=== PATIENT | female | born 1985 | race Hispanic/Latino ===

== ENCOUNTER 2019-12-08 13:21 | Outpatient (CLI) | payer MEDICAID, OTHER ==
--- NOTE | 2019-12-08 14:57 | ULT ---
EXAM: OB ultrasound COMPARISON: None HISTORY: female patient. Evaluate anatomy and cervix. TECHNIQUE: Multiplanar grayscale and color Doppler transabdominal sonographic images are obtained. FINDINGS: There is a single intrauterine gestation in breech presentation. Cardiac Doppler demonstrat es heart tones with a heart rate of 155 beats per minute. The placenta is located posteriorly without evidence of placenta previa. There is a normal amount of amniotic fluid with an a mniotic fluid index of 13.9 centimeters. The cervix is not well evaluated on this exam. biometry measurements: BPD 5.02 cm -- 21 weeks 2 days HC 18.63 cm -- 21 weeks AC 16.51 cm -- 21 weeks 4 days FL 3.36 cm -- 20 weeks 4 days The estimated gestational age by ultrasound is 21 weeks 1 day with an JEREMY on04/18/2020. Gestational a ge by the last menstrual period is 23 weeks 5 days. The estimated weight by ultrasound is 398 g (14 ounces). This represents 2 percentile for weight. A 4 chambered heart is visualized. The cerebellum, visualized portions of the spine, kidneys, u rinary bladder, and cord insertion demonstrate a normal sonographic appearance. A three-vessel cord is not able to be delineated on provided images. No definite anomalies are seen. IMPRESSION: 1. Single intrauterine gestation in breech presentation with heart tones documented. Estimated gestational age by ultrasound is 21 weeks 1 day which does represent a discrepancy in gestational age by last menstrual period of 23 weeks 5 days. Estimated date of delivery is 04/18/2020. 2. Estimated weight is 398 g (14 ounces). 3. Amniotic fluid index is 13.9 centimeters.
== END 2019-12-08 13:22 | disposition home or self-care (01) ==
LOC: BICULT 13:21
PROVIDERS: ATTEND Family Medicine
DX: O09.522 Supervision of elderly multigravida, second trimester (principal); Z3A.21 21 weeks gestation of pregnancy
CPT/HCPCS: 76805

== ENCOUNTER 2020-02-18 09:38 | Outpatient (CLI) | payer MEDICAID ==
--- NOTE | 2020-02-18 10:48 | ULT ---
OB ULTRASOUND WITH UMBILICAL ARTERY DOPPLER: Date: 02/18/2020 HISTORY: Mismatched dates. FINDINGS: A single, live intrauterine gestation is seen with measurements corresponding to an estimated gestati onal age of 31 weeks and 4 days, and JEREMY at 04/17/2020. The estimated weight measures 1743 gm, or 3 lbs and 13 oz (2% by Hadlock criteria). Biometry: BPD: 7.83 cm, 31 weeks/3 days HC: 29.30 cm, 32 weeks/3 days AC: 27.69 cm, 31 weeks/6 days FL: 5.78 cm, 30 weeks/2 days heart rate measures 140 beats/minute. ONELIA measures 20.3 cm. Placenta is posterior fundal without evidence of placenta previa. Cervical length measures 4.9 cm. The peak systolic velocity in the umbilical artery measures 84 cm/second with an end-diastolic veloci ty of 34 cm/second, RI of 0.595, and PI of 0.949. IMPRESSION: Single, live intrauterine of 31 weeks and 4 days estimated gestational age, and JEREMY at 02/2020. POS: AH
== END 2020-02-18 09:39 | disposition home or self-care (01) ==
LOC: BICULT 09:38
PROVIDERS: ATTEND Family Medicine
DX: O24.113 Pre-existing type 2 diabetes mellitus, in pregnancy, third trimester (principal); Z3A.31 31 weeks gestation of pregnancy
CPT/HCPCS: 76805

== ENCOUNTER 2020-03-31 10:36 | Outpatient (CLI) | payer MEDICAID, OTHER ==
[2020-04-01 12:01] LABS: SARS-CoV-2 MS2 Positive; SARS-CoV-2 N Gene Negative; SARS-CoV-2 S Gene Negative; SARS-CoV-2 by NAA Not Detected (NotDetected); SARS-CoV-2 orf1ab Negative
== END 2020-03-31 10:37 | disposition home or self-care (01) ==
LOC: SCSLAB 10:36
PROVIDERS: ATTEND Family Medicine
DX: Z20.828 Contact with and (suspected) exposure to other viral communicable diseases (principal)
CPT/HCPCS: 87635; U0003

== ENCOUNTER 2020-04-04 05:56 | Inpatient (IN) | payer MEDICAID, SELFPAY ==
[2020-04-04] MEDS ORDERED: hydrALAZINE 20 MG/ML VIAL SLOW IVP PRN ×2 (06:05→10:28)
[2020-04-04] MEDS ORDERED: Ondansetron PF 4 MG/2 ML Vial IVP PRN ×3 (06:05→10:28)
[2020-04-04] MEDS ORDERED: Bicitra 30 ML UDCUP PO SCH (06:05)
[2020-04-04] MEDS ORDERED: CEFAZOLIN 2 GM in Premix Bag 1 BAG IVPB SCH (06:05)
[2020-04-04] MEDS ORDERED: Azithromycin 500 MG in Sodium Chloride 0.9% 250 ML 250 ML IVPB SCH (06:05)
[2020-04-04] MEDS ORDERED: Lactated Ringer's 1,000 ML IV SCH (06:05)
[2020-04-04] MEDS ORDERED: Promethazine HCl 25 MG/ML VIAL IM PRN ×2 (06:05→08:25)
[2020-04-04 06:22] VITALS: BMI 28.3
[2020-04-04] MEDS ORDERED: Oxytocin 10 UNITS/ML VIAL ONE (06:52)
[2020-04-04] MEDS ORDERED: PHENYLEPHRINE-NS 100 MCG/ML 10 ML SYRINGE ONE (06:52)
[2020-04-04] MEDS ORDERED: ePHEDrine 50 MG/ML VIAL ONE (06:52)
[2020-04-04 07:17] LABS: Hemoglobin 11.6 g/dL (12.0-16.0); Mean Corpuscular HGB CONC 34.1 g/dL (32.0-36.0); Mean Corpuscular Hemoglobin 29.2 pg (27.0-31.0); Mean Corpuscular Volume 85.6 fL (78.0-98.0); Mean Platelet Volume 9.2 fL (7.4-10.4); Platelet Count 205 thou/uL (130-400); RBC Distribution Width 13.3 % (11.5-14.5); Red Blood Cell (RBC) Count 3.98 mill/uL (4.20-5.40); White Blood Cell (WBC) Count 5.9 thou/uL (4.8-10.8)
[2020-04-04 07:35] LABS: Syphilis Antibody Nonreactive (Nonreactive); Syphilis Antibody Index 0.07 S/CO (<1.00 Non-Reactive)
[2020-04-04 07:36] LABS: HBSAg Index 0.15 S/CO (0-0.99); Hep B Surf Ag Non-Reactive S/CO (NonReactive)
[2020-04-04] MEDS ORDERED: Naloxone HCl 0.4 mg/ml Vial IV PRN (08:25)
[2020-04-04] MEDS ORDERED: L&D-Morphine 4 MG/ML VIAL SLOW IVP PRN (08:25)
[2020-04-04] MEDS ORDERED: Meperidine HCl/PF 25 MG/ML VIAL SLOW IVP PRN (08:25)
[2020-04-04] MEDS ORDERED: Ketorolac Tromethamine 30 MG/ML VIAL IVP PRN (08:25)
[2020-04-04] MEDS ORDERED: HYDROmorphone 2 MG/ML VIAL SLOW IVP PRN (08:25)
[2020-04-04] MEDS ORDERED: Promethazine HCl 25 MG SUPP PR PRN (08:25)
[2020-04-04] MEDS ORDERED: Ondansetron HCl/PF 4 MG/2 ML Vial IVP PRN (08:25)
[2020-04-04] MEDS ORDERED: diphenhydrAMINE 50 MG/ML VIAL IVP PRN (08:25)
[2020-04-04] MEDS ORDERED: Naloxone HCl 0.4 mg/ml Vial IVP PRN ×2 (08:25)
[2020-04-04] MEDS ORDERED: Communication Order-Pharmacy FS SCH (08:30)
[2020-04-04] MEDS ORDERED: Ketorolac Tromethamine 30 MG/ML VIAL IVP SCH (08:30)
[2020-04-04] MEDS ORDERED: NS / Oxytocin 40 units/1000ml 1,000 ML ONE (10:17)
[2020-04-04] MEDS ORDERED: diphenhydrAMINE 25 MG CAP PO PRN (10:28)
[2020-04-04] MEDS ORDERED: NS / Oxytocin 40 units/1000ml 1,000 ML IV SCH (10:28)
[2020-04-04] MEDS ORDERED: Lanolin Ointment 7 GM TUBE TOP PRN (10:28)
[2020-04-04] MEDS ORDERED: Bisacodyl 10 MG SUPP PR PRN (10:28)
[2020-04-04] MEDS ORDERED: Adacel (T-DAP) 0.5 ML SYRINGE IM ONE (10:28)
[2020-04-04] MEDS ORDERED: Docusate Calcium (SURFAK) 240 MG CAP PO SCH (12:00)
[2020-04-04] MEDS ORDERED: Prenatal Vitamin 1 TAB PO SCH (12:00)
[2020-04-04] MEDS ORDERED: Ferrous Sulfate 325 MG TAB PO SCH (12:00)
[2020-04-04] MEDS: Ketorolac Tromethamine 30 MG/ML VIAL IVP SCH ×2 (16:08→22:34)
[2020-04-04] MEDS: Ferrous Sulfate 325 MG TAB PO SCH (17:56)
[2020-04-04] MEDS: metFORMIN 500 MG TAB PO SCH (17:57)
[2020-04-04] MEDS ORDERED: Meperidine HCl/PF 25 MG/ML VIAL IM PRN (20:30)
[2020-04-04] MEDS: Docusate Calcium (SURFAK) 240 MG CAP PO SCH (21:00)
[2020-04-04] MEDS: Insulin Glargine 15 UNITS in Pre-Filled Syringe 1 EACH SC SCH (21:00)
--- NOTE | 2020-04-04 22:48 | OP ---
C/S OPERATIVE REPORT DATE OF PROCEDURE: 04/04/2020 SURGEON: Dmitry Farah MD LOAN DOCUMENTS CLOSER: Belem Damon MD PROCEDURE: Repeat low transverse section. PREOPERATIVE DIAGNOSES: 1. Term intrauterine . 2. History of low-transverse section x3. 3. Diabetes mellitus type 2. 4. Advanced maternal age. POSTOPERATIVE DIAGNOSES: 1. Term intrauterine , delivered. 2. History of section, now x4. 3. Diabetes mellitus type 2. 4. Advanced maternal age. ANESTHESIA: Spinal. INDICATIONS: The patient is a 34-year-old G4, P3-0-0-3 female at 37.6 weeks gestation, who presents for repeat scheduled . PROCEDURE IN DETAIL: After risks, benefits, and alternatives were explained to the patient, she gave informed consent. Preoperative antibiotics included cefazolin 2 g IV. The patient was taken to the operating room and spinal anesthesia was initiated. She was placed in the supine position with a left tilt and prepped and draped in the usual sterile fashion. The Pfannenstiel incision was made with a scalpel and carried down to the level of the fascia, which was sharply nicked. The fascial cut was extended bilaterally with Riley scissors. The inferior and superior edges of the cut fascial edges were elevated with Ratna clamps. The underlying rectus muscles were sharply and bluntly dissected free. The recti were divided digitally and retracted manually. The peritoneum was entered bluntly and retracted manually. Bladder blade was placed. A low transverse score was made with a scalpel and the uterus was entered in the midline with a scalpel. Clear fluid was seen. The hysterotomy was extended manually. The was noted to be vertex and was easily delivered by fundal pressure. Mouth and nares were bulb suctioned. Cord clamped and cut and grossly normal. Male was handed to waiting nurse. Cord blood was obtained. Placenta was spontaneously delivered and found to be intact with 3-vessel cord and discarded. Uterus was externalized and the endometrium was curetted with a dry lap. The bladder blade was replaced and the uterus was closed with a running locking 1-0 Monocryl suture. Approximately 4 [id number] sutures were placed along the closed hysterotomy as well using 0 Vicryl suture. Following this,hemostasis was noted. The abdomen was then irrigated with saline & suctioned free of clots. The anterior surface of the uterus was then covered with 4 sheets of Seprafilm. The uterus was then internalized and the hysterotomy was again noted to be hemostatic. The peritoneum was then closed with a running nonlocking 3-0 Vicryl suture. The medial most portion of the rectus muscles were then reapproximated using a [id number] 3-0 Vicryl suture x2. The fascia was then closed with a running nonlocking 0 PDS suture. The subcutaneous tissue was irrigated and there were no free bleeders. The subcutaneous tissue was then closed using 3 deep interrupted 3-0 vicryl sutures. The skin was then approximated with shereen and a pressure dressing was placed. All counts were correct. The patient tolerated the procedure well, and was taken to the recovery room in stable condition. Of note, the infant did require some respiratory support shortly following delivery and was therefore taken to the nursery for close monitoring of his respiratory status. Quantitative blood loss was 430 mL. COMPLICATIONS: None. SPECIMENS: Cord blood sent to lab for blood type. FINDINGS: 1. Grossly normal male with Apgars of 8 and 8. 2. Grossly normal placenta with 3-vessel cord discarded. DRAIN: Echevarria to gravity draining clear urine. Job ID: [id number] [facility]
[2020-04-05] MEDS: Ketorolac Tromethamine 30 MG/ML VIAL IVP SCH ×2 (04:14→09:24)
[2020-04-05 06:38] LABS: Mean Corpuscular HGB CONC 34.5 g/dL (32.0-36.0); Mean Corpuscular Hemoglobin 29.8 pg (27.0-31.0); Mean Corpuscular Volume 86.3 fL (78.0-98.0); Mean Platelet Volume 8.6 fL (7.4-10.4); Platelet Count 152 thou/uL (130-400); RBC Distribution Width 13.3 % (11.5-14.5); Red Blood Cell (RBC) Count 3.04 mill/uL (4.20-5.40); White Blood Cell (WBC) Count 6.2 thou/uL (4.8-10.8)
[2020-04-05] MEDS ORDERED: Sodium Chloride 0.9% 10 ML ONE (09:19)
[2020-04-05] MEDS: Prenatal Vitamin 1 TAB PO SCH (09:24)
[2020-04-05] MEDS: Ferrous Sulfate 325 MG TAB PO SCH ×2 (09:24→18:29)
[2020-04-05] MEDS: metFORMIN 500 MG TAB PO SCH ×2 (09:25→19:06)
[2020-04-05] MEDS: Docusate Calcium (SURFAK) 240 MG CAP PO SCH ×2 (09:25→21:12)
[2020-04-05] MEDS: Ibuprofen 800 MG TAB PO SCH ×2 (15:27→21:12)
[2020-04-05] MEDS: HYDROcodone/Acetaminophen 5/325 mg Tablet PO PRN (15:28)
[2020-04-05] MEDS: Insulin Glargine 15 UNITS in Pre-Filled Syringe 1 EACH SC SCH (21:13)
[2020-04-06] MEDS: Ibuprofen 800 MG TAB PO SCH ×3 (06:09→21:53)
[2020-04-06] MEDS: Docusate Calcium (SURFAK) 240 MG CAP PO SCH ×2 (08:55→21:53)
[2020-04-06] MEDS: Ferrous Sulfate 325 MG TAB PO SCH ×2 (08:55→17:13)
[2020-04-06] MEDS: Prenatal Vitamin 1 TAB PO SCH (08:55)
[2020-04-06] MEDS: metFORMIN 500 MG TAB PO SCH ×2 (08:55→17:13)
[2020-04-06] MEDS: HYDROcodone/Acetaminophen 5/325 mg Tablet PO PRN ×2 (08:56→20:19)
[2020-04-06] MEDS: Insulin Glargine 15 UNITS in Pre-Filled Syringe 1 EACH SC SCH (21:55)
[2020-04-06 23:50] VITALS: TEMP 98.2
[2020-04-07] MEDS: Ibuprofen 800 MG TAB PO SCH (05:20)
[2020-04-07] MEDS: HYDROcodone/Acetaminophen 5/325 mg Tablet PO PRN (05:21)
[2020-04-07] MEDS: Ferrous Sulfate 325 MG TAB PO SCH (11:10)
[2020-04-07] MEDS: Docusate Calcium (SURFAK) 240 MG CAP PO SCH (11:10)
[2020-04-07] MEDS: Prenatal Vitamin 1 TAB PO SCH (11:10)
[2020-04-07] MEDS: metFORMIN 500 MG TAB PO SCH (11:10)
[2020-04-07 11:51] VITALS: BP 101/61
== END 2020-04-07 12:15 | disposition home or self-care (01) | DRG 786 ==
LOC: L&D 05:56 → 3SW 11:13
PROVIDERS: ADMIT Family Medicine; ATTEND Family Medicine
PROC: 10D00Z1 Extraction of Products of Conception, Low, Open Approach (ICD-10-PCS; principal; 2020-04-04)
PROC: 3E0P05Z Introduction of Adhesion Barrier into Female Reproductive, Open Approach (ICD-10-PCS; 2020-04-04)
DX: O34.211 Maternal care for low transverse scar from previous cesarean delivery (principal); O24.12 Pre-existing type 2 diabetes mellitus, in childbirth; E11.9 Type 2 diabetes mellitus without complications; Z3A.37 37 weeks gestation of pregnancy; Z37.0 Single live birth; Z79.4 Long term (current) use of insulin; Z20.828 Contact with and (suspected) exposure to other viral communicable diseases
CPT/HCPCS: 36415; 36416; 51702; 85027; 86762; 86780; 86850; 86900; 86901; 87340; J0456; J0690; J1200; J1815; J1885; J2270; J2405; J3490; J7050

== ENCOUNTER 2020-09-10 13:03 | Emergency (ER) | payer MEDICAID, OTHER, SELFPAY ==
[2020-09-10] MEDS ORDERED: Ketorolac Tromethamine 30 MG/ML VIAL ONE (14:46)
== END 2020-09-10 15:06 | disposition home or self-care (01) ==
LOC: ERS 13:03
DX: S09.90XA Unspecified injury of head, initial encounter (principal); S05.12XA Contusion of eyeball and orbital tissues, left eye, initial encounter; S19.9XXA Unspecified injury of neck, initial encounter; M25.512 Pain in left shoulder; E11.9 Type 2 diabetes mellitus without complications; Z79.84 Long term (current) use of oral hypoglycemic drugs; W01.0XXA Fall on same level from slipping, tripping and stumbling without subsequent striking against object, initial encounter
CPT/HCPCS: 70450; 70486; 72125; 96372; J1885